=== PATIENT | female | born 1980 | race African-American/Black ===

== ENCOUNTER 2018-04-24 01:56 | Inpatient (IN) | payer OTHER ==
[~2018-04-24] VITALS: Ht 160 cm; Wt 122.9 kg
[2018-04-24] MEDS ORDERED: PRENATABS RX T1 EACH PO (07:47)
[2018-04-24] MEDS ORDERED: CLARITIN10 M1 PO (07:48)
[2018-04-24] MEDS ORDERED: PROVENTIL HFA6.7 GM INH (07:48)
[2018-04-24] MEDS ORDERED: FLONASE SENSIM9.9 ML (07:48)
[2018-04-24] MEDS ORDERED: PROAIR HFA8.5 GM INH (07:49)
[2018-04-24] MEDS ORDERED: VITAMIN D1000 UNI1 (07:49)
[2018-04-24 07:50] VITALS: BP 133/73
[2018-04-24] MEDS ORDERED: FERRALET 90 TA1 EACH PO (07:50)
[2018-04-24] MEDS ORDERED: FLOVENT HFA12 G1 INH (07:55)
[2018-04-24] MEDS ORDERED: FLONASE ALLERG9.9 ML (07:56)
--- NOTE | 2018-04-24 09:45 | History & Physical ---
General Information and HPI MD Statement: I have seen and personally examined SHANTA CHEN and documented this H&P. The patient is a 37 year old female at 41 weeks and 0 days gestation who presented with a chief complaint of ROM Clear fluid 2am . Source of Information: patient, old records Exam Limitations: no limitations History of Present Illness: Pt well known to our practice with a h/o in 2001 followed by a C/S for twins. She desires a . Consent is on chart. She has SROM clear last night and is mo rarely. Allergies/Medications Allergies: Coded Allergies: Penicillins (Mild, HIVES 04/24/18) Home Med list Albuterol Sulfate (Proair Hfa) 90 MCG HFA.AER.AD 2 PUF INH Q4-6 PRN PRN asthma (Reported) Cholecalciferol (Vitamin D3) (Vitamin D) 1,000 UNIT CAPSULE VITAMIN SUPPORT ( Reported) Fluticasone Propionate (Flovent Hfa) 110 MCG/ACTUATION AER.W.ADAP 2 PUF INH BID ASTHMA (Reported) Fluticasone Propionate (Flonase Allergy Relief) 50 MCG/ACTUATION SPRAY.SUSP ALLERGIES (Reported) Iron Carb,Gl/FA/B12/C/Docusate (Ferralet 90 Tablet) 90 MG-1 MG-12 MCG-120 MG-50 MG TABLET 1 TAB PO DAILY ANEMIA (Reported) Loratadine (Claritin) 10 MG TABLET 1 TAB PO DAILY ALLERGIES (Reported) Vit #76/Iron,Carb/FA (Prenatabs Rx Tablet) 29 MG IRON-1 MG TABLET 1 TAB PO DAILY (Reported) Compliance With Home Meds: GOOD Past History rubber 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 EENTM: Denies: blurred vision, double vision, visual changes. Cardiovascular: Denies: chest pain. Respiratory: Denies: short of breath. GI: Denies: diarrhea, nausea, vomiting. Neurological/Psychological: Denies: anxiety, depressed. Exam & Diagnostic Data Last 24 Hrs of Vital Signs/I&O vss Vital Signs Date Time Temp Pulse Resp B/P B/P Pulse O2 O2 Flow FiO2 Mean Ox Delivery Rate 04/24 0750 133/73 Intake & Output 04/24 1600 04/24 0800 04/24 0000 Intake Total Output Total Balance Patient 271 lb Weight Obstetric Exam Wgt Gained During : 28# Pelvimetry: tested to 7# 10 oz Dilation (cm): 1 Effacement (%): 50 Station: -2 Membranes: SROM Fluid: clear Fundal Height (cm): 38 Multiple Gestation? No Contractions: rare #1 - FHR Baseline: 125 Category: 1 Estimated Weight: 3600G Presentation: vtx Patient for Induction? No Pratt Score Pratt Score Response Value Cervix Position: posterior 0 Cervix Consistency: soft 2 Cervix Effacement: 30-50% 1 Cervix Dilation: 1-2 cm 1 Cervix Station: -2 1 Total 5 Physical Exam General Appearance Alert, Oriented X3, Cooperative, No Acute Distress Skin No Rashes HEENT Atraumatic Neck Supple, No JVD Cardiovascular Regular Rate Lungs Clear to Auscultation Abdomen Normal Bowel Sounds, Soft, No Tenderness Neurological Normal Gait, Normal Speech, Strength at 5/5 X4 Ext, Normal Tone Labs Blood Type & Rh: O pos Antibody Screen: neg Hct/Hgb & Platelets #1: 34.4/10.6/297 Hct/Hgb & Platelets #2: 33.2/10.0/277 Rubella: imm VDRL #1: nr VDRL #2: nr HbsAg: nrg HIV #1: nr HIV #2 nr 1 Hr P Group B Strep: positive Initial Ultrasound: 11/22/17 6w 1d Anatomy Ultrasound: 11/29/17 [facility] Anatomy normal Genetic Testing: cffDNA normal Last 24 Hrs of Labs/Ger: Laboratory Tests 04/24/18 0210: Membrane Rupture POSITIVE Assessment/Plan Assessment/Plan: IUP at term SROM Clear Desires h/o ONE VAGINAL DELIVERY GBS Positive PLan proplalytic antibiots pitocin induction of labor As Ranked By This Provider Problem List: 1. Desires (vaginal after ) trial Core Measures Venous Thromboembolism VTE Risk Factors / No Mechanical VTE Prophylaxis d/t LowRisk-No Interven Req'd No VTE Pharm Prophylaxis d/t LowRisk-No Interven Req'd Attending MD Review Statement Attending Statement Attending MD Statement: examined this patient, discussed w/nursing
--- NOTE | 2018-04-24 18:44 | PN- OBGYN ---
Surgical Brief Attending Note Brief Attending Note: Pt had repedative variable decelerations unresponsive to position change O2 administeration cx still 2cm head floating finally responded to ephedrine with repedative late decilerations can not r/o scar seperation so repeat c/s recomended
--- NOTE | 2018-04-24 18:48 | Operative Report ---
Operative/Inv Procedure Report Surgery Date: 04/24/18 Name of Procedure: Repeat section Pre-Operative Diagnosis: jeopardy Post-Operative Diagnosis: failed Estimated Blood Loss: 350 Surgeon/Professor Of Biology: Mitchell BENNETT,Linden Barrios Dr., MD Anesthesia: block Urine Output: 200 Drains: nair Specimens: none Complications: none Operative/Procedure Note Note: The patient was taken to the operating room for repeat low transverse section for failed jeopardy a Nair catheter was placed in the bladder heart rates are 1 44 bpm in the left lower quadrant the abdomen was prepped the patient was placed in the left lateral tilt. The patient was grounded after checking for the adequacy of anesthesia a Pfannenstiel incision was made over the old incision. Incision was carried down sharply to the fascia which was incised in the midline sharply the incision was carried out laterally sharply. The fascia was then divided from the underlying rectus muscles in the superior and inferior direction sharply the rectus muscle bundles were divided in the midline sharply the peritoneum was entered well above the dome of the bladder in the midline sharply. The uterus was checked for any adhesions and there were none a bladder flap was created on the lower uterine segment. The lower uterine segment was entered in the midline bluntly and the incision carried out laterally bluntly. The infant was delivered from the vertex position through clear amniotic fluid the patt-pharynx was bulb suction and the cord was doubly clamped and cut the was handed to the pediatric attendant. The placenta was manually extracted the interior of the uterus was wiped clean with wet laps the uterus was externalized. The uterine incision was closed in 2 layers the first a running locking stitch and the second an imbricating over the first 0 Polysorb sutures were. The abdominal/peritoneal cavity was irrigated copiously the uterus was returned to its normal anatomical position the incision was once again checked for hemostasis which was judged to be excellent the parietal peritoneum was reapproximated in simple running fashion of 0 Polysorb suture. The fascia was reapproximated with 2 simple running 0 Polysorb sutures overlapping in the midline. María's fascia was reapproximated with a 3-0 undyed Polysorb suture in a simple running fashion the skin was closed with alejandro. Sponge instrument and needle counts were correct the end of the procedure was a Nair catheter to the bladder.
[2018-04-25 08:36] LABS: ABSOLUTE BASOPHIL COUNT 0 /CUMM (0.0-0.2); ABSOLUTE EOSINOPHIL COUNT 0 /CUMM (0.0-0.7); ABSOLUTE GRANULOCYTE CT 8.6 /CUMM (1.4-6.5); ABSOLUTE MONOCYTE COUNT 0.7 /CUMM (0.10-0.60); BASOPHIL % 0.2 % (0.0-2.0); EOSINOPHIL % 0.2 % (0-5); GRANULOCYTE % 82.9 % (42.2-75.2); HEMATOCRIT 30.4 % (37-47); MEAN CORPUSCULAR HGB 27.1 PG (27.0-31.0); MEAN CORPUSCULAR HGB CONC 32.6 G/DL (33.0-37.0); MEAN CORPUSCULAR VOLUME 83.1 FL (81.0-99.0); MEAN PLATELET VOLUME 8.9 FL (7.4-10.4); PLATELET COUNT 246 /CUMM (130-400); RBC DISTRIBUTION WIDTH 16.1 % (11.5-14.5); RED BLOOD CELL CT 3.65 /CUMM (4.20-5.40); WHITE BLOOD CELL COUNT 10.3 /CUMM (4.8-10.8)
--- NOTE | 2018-04-25 21:07 | PN- OBGYN ---
Surgical Brief Attending Note Brief Attending Note: late entry pt feeling well. amb / void / nazario po. +flatus. no bm. afeb, v/ss nad abd soft nt nd ff inc c/d/i w/ clips pillo min lochia ext nt no ed hct 30 a/p pod 1 s/p rpt c/s for failed / nrfht doing well -cont routine pop care -enc oob / amb
--- NOTE | 2018-04-26 10:38 | PN- OBGYN ---
Surgical Brief Attending Note Brief Attending Note: POD 2 Adequate pain control on PO meds. Ambulating. Voiding without difficulty. Tolerating all POs. No N&V. +flatus. working well. afebrile, VS normal, UOP good lips - pink, moist Neck - supple, Breasts - pendulous, symmetrical, ?engorged Abd - soft, NT, not distended Fundus - firm, NT Perineum - dry Extr - benign postop H/H 9.9/30% A: stable s/p C/S POD2. , recovering well, P: con't routine care. Anticipate discharge home 04/27/18
--- NOTE | 2018-04-27 10:37 | PN- Post Delivery/GYN ---
Subjective Subjective: feeling well Review of Systems Constitutional: Denies: chills, fever. EENTM: Denies: blurred vision, double vision, visual changes. Cardiovascular: Denies: chest pain, edema. Respiratory: Denies: cough, short of breath. Gastrointestinal: Denies: abdominal pain, nausea, vomiting. Genitourinary: Denies: discharge. Neurological/Psychological: Denies: anxiety, depressed. Objective Last 24 Hrs of Vital Signs/I&O vss Physical Exam General Appearance Alert, Oriented X3, Cooperative, No Acute Distress Cardiovascular Regular Rate Lungs Clear to Auscultation Abdomen Soft, No Tenderness, incision clean and dry fundus firm Neurological Normal Gait, Normal Speech, Strength at 5/5 X4 Ext, Normal Tone Pelvic (FEMALE) lochia serosanganous Current Medications: Current Medications Sig/Tre Start time Last Medication Dose Route Stop Time Status Admin Acetaminophen 650 MG Q4P PRN 04/24 183 AC PO Diphenhydramine HCl 25 MG Q6P PRN 04/24 183 AC IV Docusate Sodium 100 MG AT BEDTIME PRN 04/24 183 AC 04/26 PO 2246 Enoxaparin Sodium 40 MG DAILY 04/25 0900 AC 04/27 SC 0908 Guaifenesin/ 10 ML Q4P PRN 04/26 2300 AC 04/27 Dextromethorphan PO 0645 Hydroxyzine HCl 50 MG AT BEDTIME NEED.. 04/25 0000 AC PO Ibuprofen 600 MG Q6P PRN 04/24 1830 AC PO Ibuprofen 800 MG Q6P PRN 04/24 1830 AC 04/27 PO 0617 Magnesium Hydroxide 30 ML DAILY NEEDED PRN 04/24 183 AC PO Metoclopramide HCl 10 MG Q6P PRN 04/24 1930 AC 04/24 IV 1958 Naloxone HCl 0.2 MG ONCE PRN 04/24 183 AC IV Oxycodone/ 1 TAB Q4P PRN 04/24 183 AC 04/27 Acetaminophen PO 0617 Oxycodone/ 2 TAB Q4P PRN 04/24 183 AC Acetaminophen PO Assessment/Plan Assessment/Plan POD 3# vss afebrile plan d/c home Problem List: 1. Desires (vaginal after ) trial Attending MD Review Statement Attending Statement Attending MD Statement: examined this patient, discussed with family, discussed with nursing
[2018-04-27] MEDS ORDERED: IBUPROFEN800 M1 PO (11:02)
[2018-04-27] MEDS ORDERED: GUAIFENESIN DM S5 ML PO (11:02)
[2018-04-27] MEDS ORDERED: PERCOCET 5-3251 EACH PO (11:02)
== END 2018-04-27 11:21 | DRG 540 ==
LOC: CBCO 01:56 → GNO 02:31
PROVIDERS: Obstetrics & Gynecology
PROC: 10D00Z1 Extraction of Products of Conception, Low, Open Approach (ICD-10-PCS; principal; 2018-04-24)
DX: O76 Abnormality in fetal heart rate and rhythm complicating labor and delivery (principal); O34.211 Maternal care for low transverse scar from previous cesarean delivery; N85.8 Other specified noninflammatory disorders of uterus; Z37.0 Single live birth; O99.824 Streptococcus B carrier state complicating childbirth; O36.5930 Maternal care for other known or suspected poor fetal growth, third trimester, not applicable or unspecified; O32.4XX0 Maternal care for high head at term, not applicable or unspecified; Z3A.41 41 weeks gestation of pregnancy
CPT/HCPCS: GNOS; 36415; 81001; 84112; 87086; J1650; J1885; J2765; J7120